=== PATIENT | female | born 1955 | race Caucasian/White ===

== ENCOUNTER 2018-02-09 20:36 | Inpatient (IN) | payer OTHER ==
[2018-02-09] MEDS ORDERED: Bisacodyl 5 MG TAB PO PRN (23:23)
[2018-02-09] MEDS ORDERED: Ondansetron HCl/PF 4 MG/2 ML Vial IVP PRN (23:23)
--- NOTE | 2018-02-10 00:23 | HP ---
PRIMARY CARE PROVIDER: None. CHIEF COMPLAINT: Nausea and vomiting. HISTORY OF PRESENT ILLNESS: Ms. Blue is a pleasant 63-year-old lady who was seen at [facility] on 02/09/2018 following transfer from [facility]. She reports that she had bile duct obstruction in 01/2014. She was followed up at [facility]. She reports that by March, her bilirubin was in the normal range. She denies any recurrence of biliar y obstruction. Today morning, she was getting ready to go to work when she developed epigastric burning sensation, r adiating to chest. She reports that she has a history of reflux occasionally. She went to work. Th , she was nauseous and vomited once. She went home and vomited again. She denies any right upper quadrant pain. She reports that her urine turned yellow today. She denies any fevers or chills. S he denies any diarrhea. She went to [facility] because of ongoing nausea. There, she wa s diagnosed with choledocholithiasis and transferred to this facility. PAST MEDICAL HISTORY: Significant for a bile-duct obstruction. PAST SURGICAL HISTORY: None. FAMILY HISTORY: No family history of cholelithiasis in immediate relatives. SOCIAL HISTORY: The patient denies tobacco use, alcohol use, or recreational drug use. ALLERGIES: AMOXICILLIN and CEPHALEXIN. CURRENT MEDICATIONS: None. PHYSICAL EXAMINATION: GENERAL: Ms. Blue is awake and alert, not in acute distress. VITAL SIGNS: Blood pressure is 162/85, pulse is 65, his breathing at rate of 18, and saturating 97% on room air. She is afebrile. EYES: She has scleral icterus. No conjunctival pallor. ENT: Moist mucosal membranes. No oropharyngeal erythema or exudates. NECK: Supple, nontender, normal range of movement. Trachea is midline. RESPIRATORY: Accessory muscles of breathing are not active. Chest wall movements are symmetric bila terally. LUNGS: Clear to auscultation without wheeze, rhonchi, or crepitations. ABDOMEN: Soft, nontender, bowel sounds heard. No hepatomegaly, no splenomegaly, Gamboa sign is nega tive. NEUROLOGIC: Cranial nerves II through XII intact. Deep tendon reflexes are 2+. MUSCULOSKELETAL: Power is 5/5 in all 4 extremities. SKIN: No rashes or subcutaneous nodules. LYMPHATIC: No cervical lymphadenopathy. PSYCHIATRIC: Normal mood, normal affect. The patient is oriented to person, place, and time. LABORATORY DATA: Ms. Blue's labs and investigations were reviewed. I reviewed her electrocardiogr am, which shows normal sinus rhythm, no ST changes to suggest an acute coronary syndrome. I also rev iewed her chest x-ray, which did not show any pulmonary infiltrates. She also had abdominal ultrasou nd, which showed abnormal appearance of the gallbladder with intraluminal echogenic, non-shadowing ma terial, likely related to tumefactive sludge. She also had hepatomegaly, dilatation of the common bi le duct, right renal cyst and nonobstructing right nephrolithiasis. White count was normal. She had hemoglobin of 15 and platelet count of 203,000. She had sodium 136, potassium 3.8, creatinine 0.6, alkaline phosphatase 127, ALT elevated at 358, AST elevated at 558, and total bilirubin elevated at 2 .2. Amylase was elevated at 1397. Lipase was elevated at 20,926. ASSESSMENT AND PLAN: Ms. Blue is a pleasant 63-year-old lady who was seen at [facility] on 02/09/2018. Her problem list includes: 1. Nausea: Most likely related to choledocholithiasis. We will admit her to the hospital and start ed on p.r.n. Zofran. 2. Choledocholithiasis: Suspected. She will be kept n.p.o. after midnight. GI service will be con sulted. We will recheck her lipase and liver function tests. 3. Abnormal liver function test: Likely secondary to choledocholithiasis, recheck liver function te sts. 4. Chronic back pain: Patient reports a history of chronic back pain. This appears to be stable. LEVEL OF RISK: High. LEVEL OF COMPLEXITY: High.
[2018-02-10] MEDS: Sodium Chloride 0.9% 1,000 ML IV SCH ×4 (00:31→21:17)
[2018-02-10 01:19] VITALS: BMI 39.5
[2018-02-10 04:32] LABS: #Lymphocytes 0.6 thou/uL (1.20-3.40); #Monocytes 0.5 thou/uL (0.11-0.59); #Neutrophils 5.9 thou/uL (1.40-6.50); %Basophils 0.1 % (0.0-1.0); %Eosinophils 0.1 % (0.0-10.0); %Lymphocytes 8.1 % (21.0-51.0); %Monocytes 7.1 % (0.0-10.0); %Neutrophils 84.6 % (42.0-75.0); Hemoglobin 14.6 g/dL (12.0-16.0); Mean Corpuscular HGB CONC 32.6 g/dL (32.0-36.0); Mean Corpuscular Hemoglobin 28.8 pg (27.0-31.0); Mean Corpuscular Volume 88.5 fl (81.0-99.0); Mean Platelet Volume 7.7 fL (7.4-10.4); Platelet Count 196 thou/uL (130-400); Red Blood Cell (RBC) Count 5.07 mill/uL (4.20-5.40)
[2018-02-10 04:45] LABS: ALT (SGPT) 380 U/L (8-55); AST (SGOT) 336 U/L (5-34); Albumin 3.7 g/dL (3.4-4.8); Alkaline Phosphatase 143 U/L (40-150); Anion Gap 8 mmol/L (10-20); BUN (Urea Nitrogen) 11 mg/dL (9.8-20.1); Bilirubin, Total 1.3 mg/dL (0.2-1.2); Calc. Creatinine Clearance 160 mL/min (70-130); Calcium 9.3 mg/dL (7.8-10.44); Carbon Dioxide 27 mmol/L (23-31); Chloride 104 mmol/L (98-107); Estimated GFR-MDRD Greater than 90; Globulin 2.6 g/dL (2.4-3.5); Glucose 110 mg/dL (80-115); Potassium 3.4 mmol/L (3.5-5.1); Protein, Total 6.3 g/dL (6.0-8.3); Sodium 136 mmol/L (136-145)
[2018-02-10 04:59] LABS: Lipase 1466 U/L (8-78)
[2018-02-10] MEDS ORDERED: Dexamethasone 20 MG/5 ML VIAL ONE ×2 (11:24)
[2018-02-10] MEDS ORDERED: ePHEDrine/0.9% NaCl/PF SYRINGE 50 mg/10 ml ONE ×2 (11:24→11:25)
[2018-02-10] MEDS ORDERED: Lidocaine 1% PF 5 ML VIAL ONE (11:24)
[2018-02-10] MEDS ORDERED: PROPOFOL 200 MG/20 ML VIAL ONE ×2 (11:24→11:25)
[2018-02-10] MEDS ORDERED: Ketorolac Tromethamine 30 MG/ML VIAL ONE (11:25)
[2018-02-10] MEDS ORDERED: Glycopyrrolate 0.2 MG/ML 5 ML SYRINGE ONE (11:25)
--- NOTE | 2018-02-10 11:35 | CON ---
DATE OF CONSULTATION: 02/10/2018 GASTROINTESTINAL INPATIENT CONSULTATION NOTE REQUESTING PHYSICIAN: Dr. Conrad. REASON FOR CONSULTATION: Choledocholithiasis. HISTORY OF PRESENT ILLNESS: Eileen Blue is a 63-year-old woman who was admitted to the hospital fro the [facility] ER last night with gallstone pancreatitis and imaging suggesting possible choledocholit hiasis. She interestingly has a past history back in 2013 of biliary obstruction seen at [facility]. She says her bilirubin went as high as 15 or even 21 at one point, but that all of her symptom s resolved and the LFTs trended down. She never underwent cholecystectomy or any endoscopic procedur es, but it was felt that this was due to gallstones at that time. She did well in the interval, but then yesterday morning she started having acute nausea and epigastric pain and bloating. This progre ssed in intensity throughout the day and then she started having multiple episodes of emesis, so she presented to the [facility] ER, evidently there LFTs were found to be significantly elevated with total bilirubin to 2.2, alkaline phosphatase 127, ALT 358, AST 558 and lipase greater than 20,000. She als o had an ultrasound there showing intraluminal echogenic non-shadowing material, likely related to so me tumefactive sludge and evidently the common bile duct was dilated as well. She had a normal white count. She was sent here for higher level of care. She has received antiemetics. She has remained n.p.o. and getting IV fluids. This morning, she states that her symptoms have all vastly improved. She is no longer having any nausea. She has not vomited since arrival here. Her abdominal discomfo rt has essentially resolved as well. She is hemodynamically stable and afebrile. Her morning labs s howed lipase down to 1466 and down trending LFTs as well with total bilirubin now 1.3, alkaline phosp hatase 143, AST 336, ALT 380. She expresses significant hesitancy to undergo any procedures at this time given how much better she is feeling right now. PAST MEDICAL HISTORY: Biliary obstruction, possibly from gallstones, 2013, resolved. PAST SURGICAL HISTORY: None. FAMILY HISTORY: Noncontributory. SOCIAL HISTORY: No tobacco, alcohol, or drug use. ALLERGIES: AMOXICILLIN and CEPHALEXIN. OUTPATIENT MEDICATIONS: None. PHYSICAL EXAMINATION: VITAL SIGNS: Temperature 98.2, pulse 78, blood pressure 144/75, 93% oxygen saturation on room air. GENERAL: A 63-year-old obese woman lying in bed comfortably in no distress. SKIN: No jaundice, no rashes or palpable. EYES: No scleral icterus. Extraocular movements intact. ENT: Mucous membranes moist, no oral lesions. LYMPH: No submandibular, supraclavicular lymphadenopathy. THYROID: Nontender to palpation. HEART: Regular rate and rhythm. LUNGS: Clear to auscultation bilaterally. ABDOMEN: Bowel sounds present, soft, nontender to palpation throughout. EXTREMITIES: No peripheral edema. VESSELS: Radial pulses 2+ bilaterally. NEUROLOGICAL: Cranial nerves II-XII intact bilaterally. No focal deficits. LABORATORY STUDIES: Sodium 136, potassium 3.4, BUN 11, creatinine 0.63, total bilirubin 1.3, alkalin e phosphatase 143, AST 336, ALT 380, albumin 3.7, lipase 1466. WBC 7.0, hemoglobin 14.6, platelets 1 96. IMAGING STUDIES: Ultrasound from [facility] yesterday as detailed in the HPI. ASSESSMENT AND PLAN: 1. Biliary pancreatitis, appears to be clinically resolving. 2. Dilated common bile duct, seen on ultrasound yesterday. 3. Elevated liver function tests, improving from yesterday. The patient's presentation certainly se ems consistent with biliary pancreatitis. Looking at the trend on the labs, the LFTs are improving a long with the patient's clinical status. It is most likely that she has passed some biliary sludge, but given that downtrend in LFTs and her clinical improvement, I have a lower suspicion for retained common bile duct stone or sludge at this time. The patient expresses unwillingness to have an MRCP d one due to claustrophobia. I would not proceed with ERCP at this time. I do think she needs surgica l evaluation for consideration of cholecystectomy at some point. At that time, intraoperative cholan giogram could be performed to evaluate the bile duct. I will go ahead and consult Surgery for their opinion. In the meantime, continue with supportive care as you are doing. Thank you for the consultation. GI will follow along. Please call with any questions or concerns.
[2018-02-10] MEDS ORDERED: Scopolamine 1.5 mg/72 hour Patch TD SCH (14:45)
[2018-02-10] MEDS ORDERED: Ketorolac Tromethamine 30 MG/ML VIAL IVP SCH (14:45)
[2018-02-10] MEDS ORDERED: Acetaminophen 1,000 MG in Premix Bag 1 BAG IVPB SCH (14:45)
[2018-02-10] MEDS ORDERED: Bupivacaine HCl 0.5%/Epinephrine 1:200,000/PF 30 ml Vial ONE (14:58)
[2018-02-10] MEDS ORDERED: Famotidine/PF 20 mg/2ml Vial ONE (15:07)
[2018-02-10] MEDS ORDERED: Fentanyl 100 MCG/2 ML VIAL ONE (15:07)
--- NOTE | 2018-02-10 15:49 | HP ---
HISTORY OF PRESENT ILLNESS: Ms. Eileen Blue is a 63-year-old female, 5 foot 6, 245 pounds, 39 BMI i s an taxation accountant. She lives alone. 0, para 0. She did raised her nephew. She had an episode of cholecystitis several years ago, treated at [facility]. She reports a bilirubin of 12 to 15 that resolved on serial followup exams. She denies interval of biliary symptoms, but on is occasion, she presented to [facility] Room with epigastric pain, upper abdominal pain, naus ea and vomiting. She was transferred from [facility] Room last night at 2335, seen by Dr. Rajta larkin this morning on 906. In [facility], ultrasound of her gallbladder revealed a 12 mm bi le duct. Liver function tests, bilirubin 2.2, alkaline phosphatase 127, ALT 358, AST 558, lipase gre ater than 20,000. Ultrasound confirming echogenic material, dilated common bile duct. The patient r eceived antiemetics and is transferred for admission. She lives in [place], [place]. This morning's lab s reveal a lipase of 1466, LFTs are trending down. Bilirubin 1.3, alkaline phosphatase 143, AST 336, ALT 380. She reports resolution of her upper abdominal discomfort. Dr. Zazueta considering her a dilated common bile duct and downward trending LFTs, has recommended lapar oscopic cholecystectomy cholangiogram and only ERCP if necessary. Ultrasound report suggested MRCP a nd we do not think that is necessary, but should be approached with laparoscopic cholecystectomy chol angiogram and only consider ERCP if indicated by cholangiograms. I have spent a considerable amount of time at the patient's bedside discussing her the operative recommendation and risk of infection, b leeding, visceral biliary injury associated with the operation, discussed from other postoperative r ecovery consisting of diet as tolerated. No lifting restrictions, although she will be sore and day to day she can do what she feels like doing. She can shower and bathe the same evening of surgery. Depending on clinical course and operative findings, she could be discharged home later the same day or hospitalized overnight going home the next day. Should she decide not have the surgery, I have in formed her the increased risk of cholecystitis, recurrent episodes of pancreatitis, choledocholithias is, cholangitis, life threatening pancreatitis with different degrees of severity and length of hospi talizations, possible obligatory ERCP procrastinating care. The patient wants me to speak to her nep hew and offered to do that, but she is unable to obtain him over the phone. Her nephew is a Ph.D. wi th some research of pancreatitis and other GI diseases. The patient's request, I speak to her cousin . Her cousin is not present during this initial discussion, but I returned later to the room and cou sin is present and questions answered. PAST MEDICAL HISTORY: Biliary disease in 2013, resolved, care for [facility]. PAST SURGICAL HISTORY: Noncontributory. FAMILY HISTORY: Noncontributory. REVIEW OF SYSTEMS: Ten point noncontributory. ALLERGIES: PENICILLIN, CEPHALEXIN. She recalls adverse reaction to Cipro, but not a true allergic r eaction, although she cannot recall. The patient has never had a colonoscopy and does not want to have one. She has never had cardiac aroldo luation, never has had cardiac symptoms. PHYSICAL EXAMINATION: VITAL SIGNS: 5 foot 6, 245 pounds, 39 BMI, 98.8 degrees, 76, 18, 128/76. LUNGS: Clear to auscultation. CARDIAC: Regular rate and rhythm without murmur or gallop. ABDOMEN: Obese, soft. Mild tenderness in the epigastrium without positive Gamboa's sign. LABORATORY DATA: White count 7, hemoglobin 14, sodium 136, potassium 3.4, BUN 11, creatinine 0.63, b ilirubin 1.3, AST 336, ALT 380, lipase down to 1466. ASSESSMENT AND PLAN: Improving pancreatitis. I have recommend laparoscopic video cholecystectomy an d cholangiogram as has the [facility] Emergency Physician, [facility] Hospitalist, Dr. Conrad and Dr. Zazueta, tx stroenterologist. I have also recommended this. I have discussed with her extensively, risk and rupali efits and convalescence perioperatively. Questions have been answered. I have left my cell phone wi th her to give to her nephew who is out of state in case he wants to talk to me. I have sort bothere d him a second time to see if she had any questions. We will await her decision. If she decides to forgo surgery, we would advance her diet and discharged home today. If she decides on the other hand to have surgery, she could be discharged home later today or tomorrow pending operative findings alanna meloiogram results and postoperative clinical course.
[2018-02-10] MEDS ORDERED: Midazolam HCl 2 mg/2 ml Vial ONE (16:03)
[2018-02-10] MEDS ORDERED: Iothalamate Meglumine 60% 50 ML VIAL FS ONE (16:24)
[2018-02-10] MEDS ORDERED: Levofloxacin 500 mg/D5W 100 ml Premix Bag ONE (16:25)
[2018-02-10] MEDS ORDERED: Ondansetron ODT 8 MG TAB SL PRN (18:46)
[2018-02-10] MEDS ORDERED: Ondansetron ODT 4 MG TAB PO PRN (18:46)
[2018-02-10] MEDS ORDERED: Acetaminophen 500 MG TAB PO PRN (18:46)
[2018-02-10] MEDS ORDERED: Ondansetron ORAL SOLN. 4 MG/5 ML UDCUP PO PRN ×4 (18:46)
[2018-02-10] MEDS ORDERED: traMADol HCl 50 MG TAB PO PRN ×2 (18:46)
[2018-02-10] MEDS ORDERED: Ondansetron ODT 8 MG TAB PO PRN (18:46)
[2018-02-10] MEDS ORDERED: Ibuprofen 600 MG TAB PO PRN (18:46)
[2018-02-10] MEDS ORDERED: Promethazine HCl 25 MG/ML VIAL IM PRN ×2 (18:47)
[2018-02-10] MEDS ORDERED: Promethazine HCl 25 MG/ML VIAL SLOW IVP PRN ×2 (18:47)
[2018-02-10] MEDS ORDERED: Ondansetron HCl/PF 4 MG/2 ML Vial IVP PRN ×2 (18:47)
[2018-02-10] MEDS ORDERED: Meperidine HCl/PF 25 MG/ML VIAL SLOW IVP PRN ×2 (18:47)
--- NOTE | 2018-02-10 19:14 | RAD ---
ERCP: 02/10/18 HISTORY: Biliary calculi. FLUOROSCOPY: Total fluoroscopy time 11.5 minutes with total dose of 780.92 mGy. FINDINGS: A single fluoroscopic image from ERCP is submitted for interpretation. The common duct is cannulated. There are multiple small filling defects seen within the common duct which may represent either calc roque or air bubbles. Additional imaging was not performed to evaluate persistence of these lucencies w ithin the common duct. There does appear to be mild dilatation of the common duct as well as intrahe patic bile ducts. Surgical clips overlie the right upper quadrant. Guide wire is in place within the common duct. IMPRESSION: Filling defects within the distal common duct which may represent either calculi and/or air bubbles. No images are provided demonstrating free spill of contrast into the small bowel. POS: VIVEK
--- NOTE | 2018-02-10 20:00 | OP ---
SURGEON: Sukhwinder Zazueta M.D. VEHICLE PAINTER SURGEON: None. PROCEDURE: Endoscopic retrograde cholangiopancreatography with biliary sphincterotomy and stone extr action. INDICATION: Choledocholithiasis, demonstrated by positive intraoperative cholangiogram earlier today . MEDICATIONS: 1. See anesthesia record. 2. Levofloxacin 500 mg IV. FINDINGS: After discussion of the risks, benefits and alternatives of the procedure, informed consen t was obtained and verified. Pre-endoscopic cardiopulmonary examination was satisfactory. The patie nt was already sedated from her laparoscopic cholecystectomy and was brought immediately to the endos copy room. She was placed in a prone position on the fluoroscopy table. A Pentax side viewing duode noscope was prepared. Timeout was performed before the procedure was started. The duodenoscope was advanced through the mouth beyond the esophagus, stomach and into the second portion of the duodenum. The patient has somewhat prominent minor ampulla and at first this was mistaken for the major ampul la; however, the major ampulla was identified subsequently in the second portion of the duodenum and it was brought into view with the scope in the short position. The ampulla appeared normal. Using a triple lumen dome tip sphincterotome and a 0.035 guidewire, we were able to selectively cannulate th e common bile duct. The wire was passed up into the right intrahepatic system. Contrast from her in traoperative cholangiogram was already within the biliary tree and did demonstrate a single filling d efect in the distal common bile duct. A biliary sphincterotomy was performed. Upon biliary sphincte rotomy, there was some gelatinous tissue that was extruded from the common bile duct, which appeared to possibly have a prominent cellular component. We were able to suction this tissue and retrieve fo r pathology. Following this, we made multiple sweeps of the common bile duct with a 15 to 8 mm extra ction balloon. Multiple sweeps were made with the balloon partially and fully inflated. In this fas hion, we were able to extract a single dark pigmented stone from the common bile duct. Multiple pass es were made because the stone was somewhat difficult to extract despite its relatively small size. There were what appeared to be multiple subtle filling defects within the common bile duct, but upon multiple sweeps, it was determined that these simply represented air bubbles. Once the common bile d uct was cleared, the working apparatus was completely withdrawn. The endoscope was completely withdr awn suctioning out excess air and fluid and the procedure was complete. Postprocedure fluoroscopic i mages demonstrated no retroperitoneal or subdiaphragmatic free air. The patient tolerated the proced ure well. There were no immediate post-procedure complications. IMPRESSION: 1. Choledocholithiasis, now status post successful biliary sphincterotomy and balloon extraction of a single dark pigmented stone. 2. Some indeterminate gelatinous material, possibly with a cellular component, extracted from the co mmon bile duct, retrieved and sent for pathology. RECOMMENDATIONS: 1. Return to the floor. 2. Would remain n.p.o. tonight. Advance diet as tolerated and feeling well tomorrow morning. 3. Would trend LFTs and lipase. 4. Follow up pathology on the specimen. Please call back anytime with questions or concerns.
[2018-02-10] MEDS: Enoxaparin Sodium 40 MG/0.4 ML SYRINGE SC SCH (20:18)
--- NOTE | 2018-02-11 00:04 | RAD ---
INTRAOPERATIVE CHOLANGIOGRAM: 02/10/18 HISTORY: Bile duct stones. FINDINGS/IMPRESSION: Cystic duct is cannulated. There is dilatation of the common duct and limited visualized intrahepatic ducts. There is abrupt cut off of contrast at the level of the distal common duct likely related to a filling defect which may be related to calculus in this region. Correlation with intraoperative fin dings is recommended. POS: VIVEK
--- NOTE | 2018-02-11 04:04 | OP ---
DATE OF PROCEDURE: 02/10/2018 PREOPERATIVE DIAGNOSES: Chronic and acute cholecystitis, cholelithiasis. POSTOPERATIVE DIAGNOSES: Chronic and acute cholecystitis, cholelithiasis, choledocholithiasis. PROCEDURE: Laparoscopic video cholecystectomy, positive intraoperative cholangiogram using fluorosco py, markedly dilated common hepatic, common bile duct with lateral hepatic duct without drainage of c ontrast into the duodenum with a filling defect noted in the common bile duct. FINDINGS: Omentum adherent to the gallbladder fundus and body indicative of past and acute inflammat ion, edematous gallbladder wall, thickened wall. Markedly enlarged cystic duct, too large to be occl uded by an endoclip and endoloops x2 use. SURGEON: Dioni Vaca M.D. ANESTHESIA: General. ESTIMATED BLOOD LOSS: 25 mL. BLOOD TRANSFUSED. None. PROCEDURE IN DETAIL: Patient was taken to the operating room where under general anesthesia, abdomen was prepared with chloraprep, draped in routine fashion. 0.5% Marcaine with epinephrine infiltrated into skin and subcutaneous tissue about all port sites. Infraumbilical incision made. Pneumoperito neum to 15 mmHg obtained the Veress needle, replacing it with a 5 port laparoscope inserted. Next, a xiphoid incision was made and 11 port placed. Right subcostal incision made, mid clavicular, axilla ry lines identified, ports placed. Gallbladder was acutely inflamed with omentum surrounding it and omentum was peeled off the gallbladder and liver carefully using cautery for hemostasis. Fundus of g allbladder grasped at the cephalad, reflected laterally. Cystic artery and duct dissected free. Cri tical view obtained with two-thirds cystic plate dissection. Cystic artery double clipped proximally , divided. Cystic duct dissected free and was markedly dilated. Opening made in the cystic duct adj acent to the gallbladder and a cholangiocath inserted and cholangiogram was obtained using fluoroscop y revealing free flow of contrast into the common bile, common hepatic, hepatic ducts markedly dilated ductal system without drainage. Cholangiocath removed. Cystic duct stump doubly looped with Endoloops. Gallbladder dissected free from liver bed obtaining good hemostasis prior to division of final peritoneal attachments. Gallbladder and contents removed and submitted to Pathology. Good he mostasis ensured with cautery. Irrigant and pneumoperitoneum evacuated. All instruments removed and all skin incisions approximated with interrupted subdermal 4-0 Monocryl and DermaGlue applied. The patient was then transported to the fluoroscopy suite for an ERCP with Dr. Zazueta.
[2018-02-11] MEDS: Sodium Chloride 0.9% 1,000 ML IV SCH ×3 (04:56→16:33)
[2018-02-11 05:41] LABS: #Basophils 0.1 thou/uL (0.0-0.2); #Lymphocytes 0.3 thou/uL (1.20-3.40); #Monocytes 0.1 thou/uL (0.11-0.59); #Neutrophils 6.3 thou/uL (1.40-6.50); %Basophils 1.2 % (0.0-1.0); %Eosinophils 0.3 % (0.0-10.0); %Lymphocytes 4.1 % (21.0-51.0); %Monocytes 2.1 % (0.0-10.0); %Neutrophils 92.4 % (42.0-75.0); Hemoglobin 13.7 g/dL (12.0-16.0); Mean Corpuscular HGB CONC 33.4 g/dL (32.0-36.0); Mean Corpuscular Hemoglobin 29.5 pg (27.0-31.0); Mean Corpuscular Volume 88.3 fl (81.0-99.0); Mean Platelet Volume 7.6 fL (7.4-10.4); Platelet Count 156 thou/uL (130-400); Red Blood Cell (RBC) Count 4.65 mill/uL (4.20-5.40); White Blood Cell (WBC) Count 6.9 thou/uL (4.8-10.8)
[2018-02-11 06:10] LABS: ALT (SGPT) 228 U/L (8-55); AST (SGOT) 127 U/L (5-34); Albumin 3.4 g/dL (3.4-4.8); Alkaline Phosphatase 109 U/L (40-150); Anion Gap 11 mmol/L (10-20); BUN (Urea Nitrogen) 10 mg/dL (9.8-20.1); Bilirubin, Total 0.8 mg/dL (0.2-1.2); Calc. Creatinine Clearance 149 mL/min (70-130); Calcium 9.3 mg/dL (7.8-10.44); Carbon Dioxide 24 mmol/L (23-31); Chloride 105 mmol/L (98-107); Estimated GFR-MDRD 87; Globulin 2.7 g/dL (2.4-3.5); Glucose 140 mg/dL (80-115); Lipase 145 U/L (8-78); Protein, Total 6.1 g/dL (6.0-8.3); Sodium 136 mmol/L (136-145)
[2018-02-11] MEDS: Polyethylene Glycol 3350 17 GM Packet PO SCH ×2 (08:34→08:42)
[2018-02-11] MEDS ORDERED: traMADol HCl 50 MG TAB PO PRN (10:46)
--- NOTE | 2018-02-11 12:48 | PRG ---
DATE OF SERVICE: 02/11/2018 SUBJECTIVE: Ms. Blue is doing very well today. Abdominal discomfort is minimal and mainly at her incision sites. There is no nausea or vomiting. She has passed some gas and actually had a bowel mo vement. She is tolerating her diet. OBJECTIVE: VITAL SIGNS: Temperature 97.7, pulse 74, blood pressure 134/77, and 94% oxygen saturation on room ai r. GENERAL: No acute distress. HEART: Regular rate and rhythm. LUNGS: Clear to auscultation bilaterally. ABDOMEN: Soft and nontender to palpation. EXTREMITIES: No peripheral edema. LABORATORY STUDIES: WBC 6.9, hemoglobin 13.7, platelets 156. Sodium 136, potassium 4.0, BUN 10, cre atinine 0.68, total bilirubin normalized to 0.8. Transaminases are following with AST 127, ALT 228, alkaline phosphatase 109, lipase also drops to 145. ASSESSMENT AND PLAN: 1. Acute biliary pancreatitis, clinically resolved. 2. Choledocholithiasis, status post cholecystectomy and endoscopic retrograde cholangiopancreatograp hy with biliary sphincterotomy and stone extraction from the common bile duct yesterday. Ms. Blue is doing quite well. Clinically, her pancreatitis appears to have resolved. She is kesha ating her diet. From a GI standpoint, I think she could be discharged home when okay from a surgical perspective. Note, we did send some of the mucinous material from her common bile duct to pathology and we are awaiting that result, but will contact her on an outpatient basis when that result is alisha ilable. We will plan to see her back in clinic in the next 2-3 weeks.
--- NOTE | 2018-02-11 16:10 | PDOC.PN ---
- Subjective Encounter Start Date: 02/11/18 Encounter Start Time: 09:45 Subjective: pt up in bed no compalins - Objective Vital Signs & Weight: Vital Signs (12 hours) Temp Pulse Resp BP BP Pulse Ox 02/11/18 11:22 98.0 F 69 16 162/70 H 99 02/11/18 08:00 97.7 F 74 16 134/77 94 L Weight Weight 245 lb I&O: 02/10/18 02/11/18 02/12/18 06:59 06:59 06:59 Intake Total 1300 Balance 1300 Result Diagrams: 02/11/18 04:55 02/11/18 04:55 Phys Exam - Physical Examination HEENT: PERRLA, moist MMs, sclera anicteric, TM's clear, oral pharynx no lesions , 2+ tonsils Neck: no nodes, no JVD, supple, full ROM Respiratory: no wheezing, no rales, no rhonchi, wheezing present, clear to auscultation bilateral Cardiovascular: RRR, no significant murmur, no rub, gallop, irregular laproscopic scars noted, bsx2 non tender Musculoskeletal: no edema, pulses present, edema present Dx/Plan - Plan 1) pancreatitis 2) choledocolithisis 3) elevated lft plan: pt s/p ERCP sphincterotomy and removal of stone. Pt underwent cholecystectomy. Pt tolerating po well possible discharge in am in ok with surgery. * . Review of Systems - Review of Systems Eyes: negative: Pain, Vision Change, Conjunctivae Inflammation, Eyelid Inflammation, Redness, Other ENT: negative: Ear Pain, Ear Discharge, Nose Pain, Nose Discharge, Nose Congestion, Mouth Pain, Mouth Swelling, Throat Pain, Throat Swelling, Other Respiratory: negative: Cough, Dry, Shortness of Breath, Hemoptysis, SOB with Excertion, Pleuritic Pain, Sputum, Wheezing Cardiovascular: negative: chest pain, palpitations, orthopnea, paroxysmal nocturnal dyspnea, edema, light headedness, other Gastrointestinal: negative: Nausea, Vomiting, Abdominal Pain, Diarrhea, Constipation, Melena, Hematochezia, Other Genitourinary: negative: Dysuria, Frequency, Incontinence, Hematuria, Retention , Other - Medications/Allergies Allergies/Adverse Reactions: Allergies Allergy/AdvReac Type Severity Reaction Status Date / Time amoxicillin Allergy Verified 02/09/18 23:23 cephalexin [From Keflex] Allergy Verified 02/09/18 23:23 Medications: Current Medications Acetaminophen (Tylenol) 1,000 mg PO Q6H PRN PRN Reason: Mild Pain (1-3) Enoxaparin Sodium (Lovenox) 40 mg SC 2100 [facility] Last Admin: 02/10/18 20:18 Dose: 40 mg Sodium Chloride (Normal Saline 0.9%) 1,000 mls @ 150 mls/hr IV .Q6H40M [facility] Last Admin: 02/11/18 11:24 Dose: Not Given Ondansetron HCl (Zofran) 4 mg IVP Q6H PRN PRN Reason: Nausea/Vomiting Ondansetron HCl (Zofran Odt) 8 mg PO BIDPRN PRN PRN Reason: Nausea/Vomiting Ondansetron HCl (Zofran Odt) 8 mg SL BIDPRN PRN PRN Reason: Nausea/Vomiting Ondansetron HCl (Zofran) 4 mg PO Q6H PRN PRN Reason: Nausea/Vomiting Ondansetron HCl (Zofran) 8 mg PO Q6H PRN PRN Reason: Nausea/Vomiting Polyethylene Glycol (Miralax) 17 gm PO DAILY [facility] Last Admin: 02/11/18 08:42 Dose: 17 gm Scopolamine (Transderm Scop) 1.5 mg TD Q3D [facility] Last Admin: 02/10/18 16:23 Dose: Not Given Sodium Chloride (Flush - Normal Saline) 10 ml IVF Q12HR [facility] Last Admin: 02/11/18 08:28 Dose: 10 ml Sodium Chloride (Flush - Normal Saline) 10 ml IVF PRN PRN PRN Reason: Saline Flush Tramadol HCl (Ultram) 50 mg PO Q6H PRN PRN Reason: Severe Pain (7-10) Tramadol HCl (Ultram) 25 mg PO Q6H PRN PRN Reason: Moderate Pain (4-6) Last Admin: 02/11/18 12:25 Dose: 25 mg
[2018-02-11] MEDS ORDERED: Ibuprofen 200 MG TAB PO PRN (16:35)
--- NOTE | 2018-02-11 18:05 | PRG ---
DATE OF SERVICE: 02/11/2018 SUBJECTIVE: Eileen Blue is doing well today after laparoscopic cholecystectomy and positive cholang iograms requiring ERCP, sphincterotomy, and stone extraction. This morning, her white count is 6, he moglobin stable at 13. Basic metabolic profile is normal. Bilirubin is normalized from 1.3-0.8, AST and ALT are improved, lipase is diminished. Overall, patient is doing well. She is feeling well. She is tolerating her diet. She had an adverse reaction to tramadol and this has been discontinued. She does not tolerate Tylenol well. She does, however, agree with Motrin. She would rather avoid n arcotics and agree with this philosophy. PHYSICAL EXAMINATION: LUNGS: Clear to auscultation. CARDIAC: Regular rate and rhythm without murmur or gallop. ABDOMEN: Soft, nontender, obese. Surgical wounds are clean and dry. ASSESSMENT AND PLAN: The patient is fit for discharge at anytime. She can be discharged home today or tomorrow. Diet and activity as tolerated. No lifting restrictions, shower and bathe whenever. R esume home medications. Use ibuprofen for any discomfort. Follow up in my office in 2-3 weeks or so muareen as needed. At this point, I will see her as needed and she can be discharged at anytime from [facility] rg[facility] standpoint.
[2018-02-11] MEDS: Enoxaparin Sodium 40 MG/0.4 ML SYRINGE SC SCH (20:56)
[2018-02-12 07:45] VITALS: BP 150/78; TEMP 97.8
[2018-02-12] MEDS: Polyethylene Glycol 3350 17 GM Packet PO SCH (07:47)
--- NOTE | 2018-02-12 16:20 | DIS ---
DATE OF ADMISSION: 02/09/2018 DATE OF DISCHARGE: 02/12/2018 DISCHARGE DIAGNOSES: 1. Acute pancreatitis most likely secondary to gallstones. 2. Elevated LFTs. 3. Cholecystitis. HOSPITAL COURSE: The patient is a very pleasant 63-year-old female who initially presented to the [facility] with complaints of nausea, vomiting, and abdominal pain. The patient was found to have signif icantly elevated LFTs at the other hospital and then was sent here for further evaluation. The patie nt was seen by GI and by surgery. Patient initially underwent an ERCP with sphincterotomy and extrac tion of stone. She then underwent a laparoscopic cholecystectomy. The patient tolerated the procedu re well. Her LFTs continued to improve. Patient was able to tolerate oral intake well. However, day prior to discharge, patient did have a reaction to tramadol with some itching which of course, tramadol was discontinued. The patient will be discharged home with pain medication as for ibuprofen . DISCHARGE MEDICATIONS: MiraLax 17 grams p.o. daily, ibuprofen 400 q.6 hours p.r.n., it was instructe d to take it with food, also Pepcid 20 mg p.o. b.i.d. and Tylenol extra strength. The patient will f ollow up with surgery and also with PCP. PHYSICAL EXAMINATION. VITAL SIGNS: Temperature of 98.4, 61, 18, 96, 143/76. GENERAL: Awake, alert, oriented x3. Does not appear in any distress. CARDIOVASCULAR: S1 and S2 present. No murmurs, rubs or gallops. ABDOMEN: Soft. Laparoscopic incisions intact. Bowel sounds are present x2. No tenderness upon pal pation. EXTREMITIES: No edema.
== END 2018-02-12 12:31 | disposition home or self-care (01) | DRG 418 ==
LOC: T4-A 20:36
PROVIDERS: ADMIT Family Medicine; ATTEND Family Medicine
PROC: 0FT44ZZ Resection of Gallbladder, Percutaneous Endoscopic Approach (ICD-10-PCS; principal; 2018-02-10)
PROC: BF101ZZ Fluoroscopy of Bile Ducts using Low Osmolar Contrast (ICD-10-PCS; 2018-02-10)
PROC: 0FC98ZZ Extirpation of Matter from Common Bile Duct, Via Natural or Artificial Opening Endoscopic (ICD-10-PCS; 2018-02-10)
DX: K85.10 Biliary acute pancreatitis without necrosis or infection (principal); K80.66 Calculus of gallbladder and bile duct with acute and chronic cholecystitis without obstruction; M54.9 Dorsalgia, unspecified; G89.29 Other chronic pain; R79.89 Other specified abnormal findings of blood chemistry; K83.8 Other specified diseases of biliary tract; T78.40XA Allergy, unspecified, initial encounter; T40.4X5A Adverse effect of other synthetic narcotics, initial encounter; Z88.1 Allergy status to other antibiotic agents; Z88.0 Allergy status to penicillin
CPT/HCPCS: 36415; 47532; 74330; 80053; 83690; 85025; 88304; 88305; A4216; C1769; J0131; J0670; J1100; J1610; J1650; J1885; J1956; J2001; J2250; J2704; J3010; Q9961; S0028

== ENCOUNTER 2024-08-26 11:41 | Outpatient (CLI) | payer OTHER | END 2024-08-26 11:42 | disposition home or self-care (01) | LOC: BICRAD 11:41 | DX: M25.561 Pain in right knee (principal); M25.562 Pain in left knee; M17.0 Bilateral primary osteoarthritis of knee ==